=== PATIENT | male | born 1985 | race Caucasian/White ===

== ENCOUNTER 2020-08-12 04:18 | Emergency (ER) | payer MEDICARE, OTHER ==
[2020-08-12] MEDS ORDERED: AMOXICILLIN250 MG PO (05:30)
[2020-08-12] MEDS ORDERED: PERCOCET 5/325 T1 EA PO (05:30)
== END 2020-08-12 05:47 | disposition home or self-care (01) ==
LOC: ER1 04:18
DX: M27.8 Other specified diseases of jaws (principal); K08.89 Other specified disorders of teeth and supporting structures
CPT/HCPCS: 99282